=== PATIENT | male | born 1980 | race Asian ===

== ENCOUNTER → 2016-09-20 | Outpatient (CLI) | payer BC ==
[~2016-09-20] MED LIST: OMEP40CA PO; ONDA4TAB65 PO; TEST5GEL TOP
[2016-09-20 17:46] LABS: URINE APPEARANCE CLEAR (CLEAR); URINE BILIRUBIN NEG (NEG); URINE COLOR DK YELLOW; URINE EPITHELIAL CELL AUTO 0-5 /lpf (0-5); URINE NITRITE NEG (NEG); URINE PH 5.5 (4.5-7.5); URINE SPECIFIC GRAVITY 1.034 (1.000-1.030); UROBILINOGEN NEG (NEG)
[2016-09-20 17:54] LABS: MANUAL MICROSCOPIC REQUIRED? NO; REVIEW REQ? NO
== END | disposition home or self-care (01) ==
LOC: C.LAB1850 16:20
PROVIDERS: ATTEND Internal Medicine
DX: R82.99 Other abnormal findings in urine (principal)

== ENCOUNTER → 2016-10-27 | Outpatient (CLI) | payer BC ==
--- NOTE | 2016-10-27 12:45 | DIAGNOSTIC IMAGING REPORT ---
KUB HISTORY: Low back pain. Assess for stones. CALCIUM OXALATE CRYSTALS IN URINE COMPARISON: None. FINDINGS: The bowel gas pattern is unremarkable. There are no dilated loops of small bowel to suggest an obstruction. No renal calculi. No ureteral calculi. Calcifications in the deep pelvis likely represent phleboliths. Old nonunited right 12 rib fracture. No pneumoperitoneum or pneumatosis. IMPRESSION: No renal or ureteral stones. Electronically signed by: Amilcar Rodriguez M.D. 10/27/2016 12:44 PM Dictated Date/Time: 10/27/2016 12:43 PM
--- NOTE | 2016-10-27 12:46 | DIAGNOSTIC IMAGING REPORT ---
RIGHT HIP UNILATERAL 2 VIEWS CLINICAL HISTORY: Back and hip pain COMPARISON: None. DISCUSSION: No fractures are visualized. There are no erosive or destructive changes. IMPRESSION: No significant bony abnormalities. Electronically signed by: Juan Rivers M.D. 10/27/2016 12:45 PM Dictated Date/Time: 10/27/2016 12:45 PM
--- NOTE | 2016-10-27 12:46 | DIAGNOSTIC IMAGING REPORT ---
LEFT HIP 2 VIEWS HISTORY: Left hip pain. LOWER BACK PAIN COMPARISON: None. FINDINGS: There is no fracture or dislocation. Soft tissues are unremarkable. No radiopaque foreign bodies. Cartilage spaces are maintained for age. IMPRESSION: Unremarkable left hip. Electronically signed by: Amilcar Rodriguez M.D. 10/27/2016 12:45 PM Dictated Date/Time: 10/27/2016 12:44 PM
== END | disposition home or self-care (01) ==
LOC: C.RAD1850 12:18
PROVIDERS: ATTEND Internal Medicine
DX: M54.5 Low back pain (principal); R82.99 Other abnormal findings in urine

== ENCOUNTER → 2017-04-27 | Outpatient (CLI) | payer BC ==
--- NOTE | 2017-04-27 15:18 | DIAGNOSTIC IMAGING REPORT ---
L ANKLE MIN 3 VIEWS ROUTINE CLINICAL HISTORY: M76.60 Achilles tendon [id number] pain COMPARISON: None. DISCUSSION: The bones and joint spaces appear intact. There is no evidence of fracture, dislocation or bony disease. There is no evidence for soft tissue swelling. IMPRESSION: Negative study. The above report was generated using voice recognition software. It may contain grammatical, syntax or spelling errors. Electronically signed by: Neymar Ortiz M.D. 04/27/2017 3:16 PM Dictated Date/Time: 04/27/2017 3:16 PM
== END | disposition home or self-care (01) ==
LOC: C.RAD1850 15:01
PROVIDERS: ATTEND Internal Medicine
DX: M76.60 Achilles tendinitis, unspecified leg (principal)